=== PATIENT | male | born 1970 | race Caucasian/White ===

== ENCOUNTER 2024-07-07 15:30 | Outpatient (RCR) | payer OTHER, SELFPAY ==
--- NOTE | 2024-05-06 09:29 | URNOTE ---
Request received for authorization for Gemcitabine (Gemzar) ([id number]). Prior authorization is not required per [facility] Rep. Chon Johnston (Ref#[id number])
[2024-05-14 13:54] LABS: Basophils Absolute Auto 0.04 K/uL (0.00-0.30); Basophils Percent Auto 0.5 % (0.0-3.0); Eosinophils Absolute Auto 0.21 K/uL (0.00-0.50); Eosinophils Percent Auto 2.7 % (0.0-7.0); Hematocrit 38.1 % (37.0-53.0); Hemoglobin* 12.1 gm/dL (13.5-17.5); Immature Granulocytes Abs Auto 0.01 K/uL (0.00-0.30); Immature Granulocytes Pct Auto 0.1 %; Lymphocytes Percent Auto 16.7 % (20-44); Mean Corpuscular HGB Conc 32 gm/dL (32-36); Mean Corpuscular Hemoglobin 29 pg (26-34); Mean Corpuscular Volume 90 fL (80-100); Monocytes Percent Auto 8.8 % (0.0-11.0); Neutrophils Absolute Auto 5.58 K/uL (1.7-7.0); Neutrophils Percent Auto 71.2 % (42.0-72.0); Platelet Count* 140 K/uL (140-440); RDW Coefficient of Variation % 12.6 % (11.5-15.5); Red Blood Count 4.23 m/uL (4.30-5.90); White Blood Count* 7.84 K/uL (4.50-11.00)
[2024-05-14 14:00] LABS: Slide Review Reflex No
[2024-05-14 14:10] LABS: Albumin* 4.3 g/dL (3.3-5.0)
[2024-05-14 14:11] LABS: Chloride* 104 mmol/L (96-114); Potassium* 4.3 mmol/L (3.6-5.1); Sodium* 136 mmol/L (135-149)
[2024-05-14 14:13] LABS: Bilirubin Total* 0.2 mg/dL (0.1-1.5); Creatinine* 0.8 mg/dL (0.5-1.5); Est. Creatinine Clearance* 108.01; Estimated Glomerular Filt Rate 106 ml/min
[2024-05-14 14:14] LABS: Alanine Aminotransferase* 20 U/L (4-50); Alkaline Phosphatase* 137 U/L (40-150); Anion Gap 10 mEq/L (7-15); Aspartate Amino Transferase* 22 U/L (12-35); Blood Urea Nitrogen* 18 mg/dL (7-30); Calcium* 8.9 mg/dL (8.4-10.6); Carbon Dioxide* 22 mmol/L (20-32); Glucose* 115 mg/dL (60-115); Total Protein* 6.6 g/dL (6.0-8.3)
[2024-05-14] MEDS: ONDANSETRON 2 MG/ML inj 8 MG IVP (14:57)
[2024-05-14] MEDS: dexAMETHasone 10 MG/ML inj IVP (14:57)
--- NOTE | 2024-05-14 15:06 | ONC.NURNOTE ---
New start Elliot today patient teaching patient states he has read extensively, has a strong medical background, reviewed binder contents, self care recommendations, calling with concerns, after hours management, possible side effects, managing fatigue, denies dietitian- states well informed from previous hospitalizations self employed accompanied by of 3 weeks- from [place]
--- NOTE | 2024-05-15 11:59 | ONC.NURNOTE ---
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
--- NOTE | 2024-05-15 12:01 | ONC.NURNOTE ---
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
--- NOTE | 2024-05-19 14:08 | ONC.NURNOTE ---
Patient called today with scheduling conflicts for his appt tomorrow 05/20. Patient is scheduled for a video visit with Dr. Harris and labs prior to treatment on 05/21. Per patient he is scheduled for education at 2:15 prior to his 2:45 radiation and can't make the video visit work. He reports feeling good just some fatigue when he is working. He has no concerns at this time. Dr. Harris has a 2 pm opening on 05/27. Offered that appt to [facility] and he said that would work better. MD appt on 05/20 cancelled and lab appt moved to 3:15 to accommodate radiation appts. Scheduled on 05/[address] Harris at 2 pm. Patient verbalized understanding and is agreeable to the plan.
[2024-05-21 12:34] LABS: Basophils Percent Auto 0.2 % (0.0-3.0); Eosinophils Percent Auto 1.4 % (0.0-7.0); Hematocrit 39.3 % (37.0-53.0); Hemoglobin* 12.6 gm/dL (13.5-17.5); Immature Granulocytes Pct Auto 0.7 %; Mean Corpuscular HGB Conc 32 gm/dL (32-36); Mean Corpuscular Hemoglobin 29 pg (26-34); Mean Corpuscular Volume 89 fL (80-100); Monocytes Percent Auto 8.1 % (0.0-11.0); Neutrophils Percent Auto 77.6 % (42.0-72.0); Platelet Count* 95 K/uL (140-440); RDW Coefficient of Variation % 12.5 % (11.5-15.5); White Blood Count* 4.34 K/uL (4.50-11.00)
[2024-05-21 12:40] LABS: Slide Review Reflex No
[2024-05-21 12:52] LABS: Chloride* 106 mmol/L (96-114)
[2024-05-21 12:53] LABS: Albumin* 4.6 g/dL (3.3-5.0); Sodium* 139 mmol/L (135-149)
[2024-05-21 12:54] LABS: Potassium* 4.4 mmol/L (3.6-5.1)
[2024-05-21 12:56] LABS: Alkaline Phosphatase* 93 U/L (40-150); Anion Gap 8 mEq/L (7-15); Aspartate Amino Transferase* 20 U/L (12-35); Bilirubin Total* 0.3 mg/dL (0.1-1.5); Carbon Dioxide* 25 mmol/L (20-32); Creatinine* 0.7 mg/dL (0.5-1.5); Est. Creatinine Clearance* 123.44; Estimated Glomerular Filt Rate 111 ml/min; Total Protein* 7.3 g/dL (6.0-8.3)
[2024-05-21 12:57] LABS: Alanine Aminotransferase* 19 U/L (4-50); Blood Urea Nitrogen* 18 mg/dL (7-30); Calcium* 9.3 mg/dL (8.4-10.6); Glucose* 133 mg/dL (60-115)
--- NOTE | 2024-05-21 13:58 | A.ONCPRONO_ITS ---
[facility] Provider Note Clinic Note Narrative: Thrombocytopenia Mr. Barksdale is currently following at our clinic, and at [facility], for medical management of pancreatic neuroendocrine tumor. He is receiving concurrent therapy with radiosensitizing gemcitabine at 300mg/M2 weekly with radiation due to previous chemotherapy regimen and DPD deficiency per recommendations of [place] team. He missed his week 2 routine provider follow up with Dr. Harris this week due to scheduling conflict. Nursing called to report to me that he has a pre-treatment platelet count of 95,000 today. He is pleased that he is overall feeling as good as he is, and is able to work. He does report feeling more fatigued. He is steady on his feet, eating and drinking. Vital signs and weight are stable today. He is on eliquis for portal vein/SMV/splenic vein s/p stent. Labs per chart review: Laboratory Tests 05/21/24 12:27 WBC 4.34 L RBC 4.40 Hgb 12.6 L Hct 39.3 MCV 89 MCH 29 MCHC 32 RDW Coeff of Josiah 12.5 Plt Count 95 L Neut % (Auto) 77.6 H Lymph % (Auto) 12.0 L Sharkey % (Auto) 8.1 Eos % (Auto) 1.4 Baso % (Auto) 0.2 Neut # (Auto) 3.40 Lymph # (Auto) 0.50 L Sharkey # (Auto) 0.40 Eos # (Auto) 0.10 Baso # (Auto) 0.00 Abs Immat Gran (auto) 0.00 Imm/Tot Granulo (auto) 0.7 Laboratory Tests 05/21/24 12:27 Sodium 139 Potassium 4.4 Chloride 106 Carbon Dioxide 25 Anion Gap 8 BUN 18 Creatinine 0.7 Estimated Creat Clear 123.44 Estimated GFR 111 Glucose 133 H Calcium 9.3 Total Bilirubin 0.3 AST 20 ALT 19 Alkaline Phosphatase 93 Total Protein 7.3 Albumin 4.6 Selected Entries 05/21/24 14:08 Weight 72.7 kg Temperature 97.8 F Pulse Rate [] 81 Respiratory Rate 16 Blood Pressure [] 134/91 H Pulse Oximetry 97 Mr. Barksdale returns to [facility] clinic today for week 2 of radiosensitizing gemcitabine with concurrent radiation therapy for pancreatic neuroendocrine tumor. He is overall tolerating his therapy well per nursing report, review of lab work, vital signs and weight. He is noted to have mild thrombocytopenia platelets of 95,000. ANC 3.4. Hgb 12.6. Performance status 0. On eliquis. Steady on feet. NO evidence for bleeding. - Will dose reduce weekly gemcitabine to 80% of 300mg/m2= 240mg/m2. - Follow up with Dr. Iman Harris 05/27/24 with lab work, and anticipated week 3 of gemcitabine on 05/28/24. Per nursing, Mr. Barksdale is agreeable to this plan.
[2024-05-21 14:08] VITALS: BP 134/91; PULSE 81; RESP 16; TEMP 36.6; O2SAT 97
[2024-05-21] MEDS: 0.9 % SODIUM CHLORIDE 500 ML 250 ML IV (14:20)
[2024-05-21] MEDS: ONDANSETRON 2 MG/ML inj 8 MG IVP (14:22)
[2024-05-21] MEDS: dexAMETHasone 10 MG/ML inj IVP (14:24)
--- NOTE | 2024-05-21 15:39 | ONC.NURNOTE ---
Patient in clinic for C1D8 of Gemzar. Platelets are 95 today. Overall patient feels good. He is eating and drinking well. Does have some fatigue during work but is taking more breaks as needed. Denies any S/S of bleeding. Spoke with Gail Miramontes APRN who reviewed patient's chart and decided to proceed with treatment today at a 20%. Discussed plan with patient and he is agreeable. Educated him on S/S of low platelets and bleeding and when to be seen in ER.
[2024-05-27 14:39] LABS: Basophils Percent Auto 0.3 % (0.0-3.0); Eosinophils Percent Auto 2.1 % (0.0-7.0); Hemoglobin* 11.7 gm/dL (13.5-17.5); Immature Granulocytes Pct Auto 0.3 %; Lymphocytes Percent Auto 11.8 % (20-44); Mean Corpuscular HGB Conc 33 gm/dL (32-36); Mean Corpuscular Hemoglobin 29 pg (26-34); Mean Corpuscular Volume 90 fL (80-100); Monocytes Percent Auto 5.6 % (0.0-11.0); Neutrophils Percent Auto 79.9 % (42.0-72.0); Platelet Count* 64 K/uL (140-440); RDW Coefficient of Variation % 12.8 % (11.5-15.5); Red Blood Count 4.01 m/uL (4.30-5.90); White Blood Count* 3.39 K/uL (4.50-11.00)
[2024-05-27 14:40] LABS: Slide Review Reflex No
[2024-05-27 14:51] LABS: Albumin* 4.2 g/dL (3.3-5.0); Chloride* 106 mmol/L (96-114)
[2024-05-27 14:52] LABS: Potassium* 4.2 mmol/L (3.6-5.1); Sodium* 137 mmol/L (135-149)
[2024-05-27 14:54] LABS: Anion Gap 8 mEq/L (7-15); Carbon Dioxide* 23 mmol/L (20-32); Creatinine* 0.6 mg/dL (0.5-1.5); Est. Creatinine Clearance* 144.02; Estimated Glomerular Filt Rate 116 ml/min
[2024-05-27 14:55] LABS: Alanine Aminotransferase* 15 U/L (4-50); Alkaline Phosphatase* 109 U/L (40-150); Aspartate Amino Transferase* 17 U/L (12-35); Blood Urea Nitrogen* 13 mg/dL (7-30); Calcium* 8.8 mg/dL (8.4-10.6); Glucose* 146 mg/dL (60-115); Total Protein* 6.6 g/dL (6.0-8.3)
[2024-05-27 14:59] LABS: Bilirubin Total* < 0.1 mg/dL (0.1-1.5)
[2024-05-28 13:08] VITALS: BP 116/77; PULSE 76; RESP 16; TEMP 36.7; O2SAT 98
[2024-05-28] MEDS: 0.9 % SODIUM CHLORIDE 500 ML IV (13:20)
[2024-05-28] MEDS: SODIUM CHLORIDE 0.9 % (FLUSH) 10 ML SYRINGE IVF (13:20)
[2024-05-28] MEDS: ONDANSETRON 2 MG/ML inj 8 MG IVP (13:25)
[2024-05-28] MEDS: dexAMETHasone 10 MG/ML inj IVP (13:25)
--- NOTE | 2024-05-30 08:15 | ONC.NURNOTE ---
LATE ENTRY: 05/27/2024 discussed low platelets with Dr. Harris. Oncologist further decreased patient dose on gemzar in order to continue treatment on Sunday.
[2024-06-03 15:13] LABS: Basophils Percent Auto 0.3 % (0.0-3.0); Eosinophils Percent Auto 2.1 % (0.0-7.0); Hematocrit 36.3 % (37.0-53.0); Hemoglobin* 11.6 gm/dL (13.5-17.5); Immature Granulocytes Pct Auto 1.2 %; Lymphocytes Percent Auto 6.6 % (20-44); Mean Corpuscular HGB Conc 32 gm/dL (32-36); Mean Corpuscular Hemoglobin 28 pg (26-34); Mean Corpuscular Volume 89 fL (80-100); Monocytes Percent Auto 10.6 % (0.0-11.0); Neutrophils Percent Auto 79.2 % (42.0-72.0); Platelet Count* 97 K/uL (140-440); RDW Coefficient of Variation % 13.3 % (11.5-15.5); Red Blood Count 4.08 m/uL (4.30-5.90); White Blood Count* 3.31 K/uL (4.50-11.00)
[2024-06-03 15:18] LABS: Slide Review Reflex No
[2024-06-03 15:25] LABS: Albumin* 4.3 g/dL (3.3-5.0); Chloride* 102 mmol/L (96-114); Potassium* 4.6 mmol/L (3.6-5.1); Sodium* 137 mmol/L (135-149)
[2024-06-03 15:28] LABS: Alanine Aminotransferase* 19 U/L (4-50); Alkaline Phosphatase* 88 U/L (40-150); Anion Gap 10 mEq/L (7-15); Aspartate Amino Transferase* 25 U/L (12-35); Bilirubin Total* 0.5 mg/dL (0.1-1.5); Blood Urea Nitrogen* 16 mg/dL (7-30); Calcium* 8.9 mg/dL (8.4-10.6); Carbon Dioxide* 25 mmol/L (20-32); Creatinine* 0.8 mg/dL (0.5-1.5); Est. Creatinine Clearance* 108.01; Estimated Glomerular Filt Rate 106 ml/min; Glucose* 100 mg/dL (60-115); Total Protein* 6.9 g/dL (6.0-8.3)
[2024-07-07 16:07] LABS: Basophils Absolute Auto 0.02 K/uL (0.00-0.30); Basophils Percent Auto 0.3 % (0.0-3.0); Eosinophils Absolute Auto 0.15 K/uL (0.00-0.50); Eosinophils Percent Auto 2.5 % (0.0-7.0); Hematocrit 35.5 % (37.0-53.0); Hemoglobin* 11.5 gm/dL (13.5-17.5); Immature Granulocytes Abs Auto 0.01 K/uL (0.00-0.30); Immature Granulocytes Pct Auto 0.2 %; Lymphocytes Percent Auto 3.8 % (20-44); Mean Corpuscular HGB Conc 32 gm/dL (32-36); Mean Corpuscular Hemoglobin 28 pg (26-34); Mean Corpuscular Volume 87 fL (80-100); Monocytes Percent Auto 8.4 % (0.0-11.0); Neutrophils Percent Auto 84.8 % (42.0-72.0); Platelet Count* 91 K/uL (140-440); RDW Coefficient of Variation % 15.2 % (11.5-15.5); Red Blood Count 4.06 m/uL (4.30-5.90); White Blood Count* 6.08 K/uL (4.50-11.00)
[2024-07-07 16:12] LABS: Slide Review Reflex No
[2024-07-07 16:23] LABS: Albumin* 4.3 g/dL (3.3-5.0); Chloride* 107 mmol/L (96-114); Potassium* 3.9 mmol/L (3.6-5.1); Sodium* 142 mmol/L (135-149)
[2024-07-07 16:25] LABS: Alanine Aminotransferase* 33 U/L (4-50); Anion Gap 10 mEq/L (7-15); Aspartate Amino Transferase* 35 U/L (12-35); Blood Urea Nitrogen* 18 mg/dL (7-30); Carbon Dioxide* 25 mmol/L (20-32); Creatinine* 0.8 mg/dL (0.5-1.5); Est. Creatinine Clearance* 108.01; Estimated Glomerular Filt Rate 106 ml/min
[2024-07-07 16:26] LABS: Alkaline Phosphatase* 145 U/L (40-150); Bilirubin Total* 0.4 mg/dL (0.1-1.5); Calcium* 8.7 mg/dL (8.4-10.6); Glucose* 125 mg/dL (60-115); Total Protein* 6.9 g/dL (6.0-8.3)
== END 2024-11-01 23:59 | disposition home or self-care (01) ==
LOC: CCIC 15:30
PROVIDERS: Clinical Nurse Specialist; Visit Provider Physician Assistant
DX: C25.4 Malignant neoplasm of endocrine pancreas (principal); E88.89 Other specified metabolic disorders; Z79.01 Long term (current) use of anticoagulants
CPT/HCPCS: 36415; 80053; 85025; 86850; 86900; 86901; 86922; 96375; 96376; 96413; 99202; 99205; 99211; 99214; G0463; J1100; J2405; J7030; J7050; J9201